=== PATIENT | male | born 1975 | race Caucasian/White ===

== ENCOUNTER 2016-07-30 18:21 | Emergency (ER) | payer SELFPAY ==
[~2016-07-30] VITALS: Ht 170.2 cm; Wt 82.0 kg
[2016-07-30 18:26] VITALS: BP 135/71; PULSE 118; RESP 20; TEMP 99.3; O2SAT 92
[2016-07-30] MEDS ORDERED: LORazepam 2 MG/ML VIAL IV PUSH ONE (18:30)
[2016-07-30] MEDS ORDERED: SODIUM CHLOR 0.9% 1000 ML INJ 1,000 ML IV ONE (18:30)
--- NOTE | 2016-07-30 18:54 | PD ---
HPI Chief Complaint: Alcohol/Drug Intoxication Time Seen by Provider: 18:24 Travel History International Travel<30 days: No Contact w/Intl Traveler<30days: No Traveled to known affect area: No History of Present Illness HPI 41-year-old man, who presents emergency department brought in by EMS after he was found confused and vomiting and the street. He admits to K2 use today. Denies alcohol use. At this point his chief concern is [place]. He is homeless. He is alert and oriented. He does not report happened earlier however he is aware of where he is now, his current situation, and has medical decision making capacity at this moment. He does not desire further medical evaluation. He is agreeable to some fluids and some benzodiazepines. History Past Medical History Medical History: Denies Significant Hx Tetanus Vaccination: > 5 Years Influenza Vaccination: No Past Surgical History Surgical History: No Previous Surgery Social History Alcohol Use: Yes (OCC) Tobacco Use: Yes (1PPD) Allergies-Medications (Allergen,Severity, Reaction): Coded Allergies: No Known Allergies (Unverified , 07/30/16) Reported Meds & Prescriptions Reported Meds & Active Scripts Active No Active Prescriptions or Reported Medications Review of Systems Except as stated in HPI: all other systems reviewed are Neg Physical Exam Narrative GENERAL: 41-year-old man, on edge but no acute distress. SKIN: Warm and dry. HEAD: Atraumatic. Normocephalic. EYES: Pupils equal and round. No scleral icterus. No injection or drainage. ENT: No nasal bleeding or discharge. Mucous membranes pink and moist. NECK: Trachea midline. No JVD. CARDIOVASCULAR: Heart rate rapid. No murmurs. RESPIRATORY: No accessory muscle use. Clear to auscultation. Breath sounds equal bilaterally. GASTROINTESTINAL: Abdomen soft, non-tender, nondistended. Hepatic and splenic margins not palpable. MUSCULOSKELETAL: No obvious deformities. No edema. NEUROLOGICAL: Awake and alert. No obvious cranial nerve deficits. Motor grossly within normal limits. Normal speech. PSYCHIATRIC: Some psychomotor agitation, otherwise unremarkable. Data Data Last Documented VS Vital Signs Date Time Temp Pulse Resp B/P Pulse Ox O2 Delivery O2 Flow Rate FiO2 07/30/16 18:26 99.3 118 20 135/71 92 Orders Iv Access Insert/Monitor (07/30/16 18:24) Sodium Chlor 0.9% 1000 Ml Inj (Ns 1000 M (07/30/16 18:30) Lorazepam Inj (Ativan Inj) (07/30/16 18:30) MDM Medical Decision Making Medical Screen Exam Complete: Yes Emergency Medical Condition: Yes Differential Diagnosis Illicit drug use, intoxication, psychiatric disease, other Narrative Course Medical decision making 41-year-old man, presents to the emergency department with apparent adverse effects of synthetic marijuana use. He was confused on scene with EMS. He's more lucid now but still somewhat agitated. He however appears to have medical decision-making capacity and is not desiring further medical evaluation. He is agreeable to taking some fluids and benzodiazepines while we have case management work with him to try to get him back [place]. Diagnosis Primary Impression: Illicit drug use Additional Instructions: Avoid illicit drug use. Return to the emergency department for any new or worsening symptoms. Scripts No Active Prescriptions or Reported Meds Disposition: 01 DISCHARGE HOME Condition: Stable Ryan Zazueta MD Jul 30, 2016 18:54
== END 2016-07-30 20:51 | disposition home or self-care (01) ==
LOC: NEPE 18:21
DX: F19.90 Other psychoactive substance use, unspecified, uncomplicated (principal); R11.10 Vomiting, unspecified; F17.200 Nicotine dependence, unspecified, uncomplicated; Z59.0 Homelessness
CPT/HCPCS: 96374; 99284; J2060; J7030

== ENCOUNTER 2017-06-21 09:30 | Emergency (ER) | payer SELFPAY ==
[~2017-06-21] VITALS: Ht 172.7 cm; Wt 74.0 kg
[2017-06-21 09:32] VITALS: BP 188/84; PULSE 86; RESP 14; TEMP 98.1; O2SAT 99
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
[2017-06-21] MEDS ORDERED: SODIUM CHLORIDE 0.9% FLUSH 10 ML FLUSH IV FLUSH PRN (10:30)
[2017-06-21] MEDS ORDERED: KETOROLAC TROMETHAMINE 30 MG/ML (IVP) VIAL IVP ONE (10:30)
[2017-06-21 10:46] LABS: BLOOD, URINE TRACE (NEG); COMMENT (UR) CULT NOT INDICATED; CULTURE IF INDICATED CULT NOT INDICATED; GLUCOSE,URINE NEG (NEG); KETONE, URINE NEG (NEG); MUCUS URINE FEW /lpf (OCC); NITRITE,URINE NEG (NEG); PH, URINE 7.5 (5.0-8.5); URINE COLOR LIGHT-YELLOW (YELLW/STRAW)
[2017-06-21 10:49] LABS: AUTOMATED NEUTROPHIL # 7.9 TH/MM3 (1.8-7.7); BASOPHIL # 0.1 TH/MM3 (0-0.2); BASOPHIL % 0.8 % (0.0-2.0); EOSINOPHIL # 0.2 TH/MM3 (0-0.4); EOSINOPHIL % 2.1 % (0.0-4.0); HEMATOCRIT 46.3 % (39.0-51.0); HEMO FLAGS DIFF FINAL; LYMPH % 21.1 % (9.0-44.0); LYMPHOCYTE # 2.5 TH/MM3 (1.0-4.8); MEAN CELL VOLUME 95.3 FL (80.0-100.0); MEAN CORPUSCULAR HEMOGLOBIN 32.3 PG (27.0-34.0); MEAN CORPUSCULAR HGB CONC 33.9 % (32.0-36.0); MONO % 8.5 % (0.0-8.0); NEUT % 67.5 % (16.0-70.0); PLATELET COUNT 312 TH/MM3 (150-450); RED BLOOD COUNT 4.86 MIL/MM3 (4.50-5.90); WHITE BLOOD COUNT 11.7 TH/MM3 (4.0-11.0)
--- NOTE | 2017-06-21 11:04 | RADRPT ---
EXAM DATE/TIME: 06/21/2017 10:45 [facility] COMPARISON: No previous studies available for comparison. INDICATIONS : Chest pain. MEDICAL HISTORY : None. SURGICAL HISTORY : None. ENCOUNTER: Initial ACUITY: 1 day PAIN SCORE: 2/10 LOCATION: Right upper chest FINDINGS: A single view of the chest demonstrates the lungs to be symmetrically aerated without evidence of mas s, infiltrate or effusion. The cardiomediastinal contours are unremarkable. Several right posterior rib fractures of indeterminate age.. CONCLUSION: Right-sided rib fractures of indeterminate likely old. Clear lungs. Juan Quinn MD on June 21, 2017 at 11:02 Board Certified Radiologist. This report was verified electronically.
[2017-06-21 11:11] LABS: ALKALINE PHOSPHATASE 70 U/L (45-117); TOTAL BILIRUBIN ADULT 0.3 MG/DL (0.2-1.0)
[2017-06-21 11:14] LABS: ALT (GPT) 22 U/L (12-78); ANION GAP 3 MEQ/L (5-15); AST (GOT) 21 U/L (15-37); BLOOD UREA NITROGEN 7 MG/DL (7-18); CHLORIDE 108 MEQ/L (98-107); GLOMERULAR FILTRATION RATE 94 ML/MIN (>89); SODIUM (NA) 141 MEQ/L (136-145)
[2017-06-21 11:16] LABS: POTASSIUM 4.2 MEQ/L (3.5-5.1)
[2017-06-21] MEDS ORDERED: TYLE325T PO (13:46)
== END 2017-06-21 18:09 | disposition home or self-care (01) ==
LOC: NEPE 09:30
DX: R10.30 Lower abdominal pain, unspecified (principal); R19.7 Diarrhea, unspecified; R35.0 Frequency of micturition; M54.5 Low back pain; F17.200 Nicotine dependence, unspecified, uncomplicated
CPT/HCPCS: 71010; 80053; 81001; 83690; 85025; 96374; 99284; J1885

== ENCOUNTER 2017-11-14 17:19 | Emergency (ER) | payer SELFPAY ==
[2017-11-14] MEDS: SODIUM CHLOR 0.9% 1000 ML INJ 1,000 ML IV (17:59)
[2017-11-14 18:47] LABS: ALBUMIN 2.9 GM/DL (3.4-5.0); ALT (GPT) 19 U/L (12-78); ANION GAP 12 MEQ/L (5-15); AST (GOT) 27 U/L (15-37); BICARBONATE 24.3 MEQ/L (21.0-32.0); BLOOD UREA NITROGEN 10 MG/DL (7-18); CALCIUM 9.2 MG/DL (8.5-10.1); CHLORIDE 108 MEQ/L (98-107); CREATININE 0.86 MG/DL (0.60-1.30); GLOMERULAR FILTRATION RATE 98 ML/MIN (>89); GLUCOSE,RANDOM 158 MG/DL (74-106); POTASSIUM 3.4 MEQ/L (3.5-5.1); SODIUM (NA) 144 MEQ/L (136-145)
[2017-11-14 18:54] LABS: AMPHETAMINE, URINE POS (NEG); BARBITURATES, URINE NEG (NEG); BENZODIAZEPINE,URINE NEG (NEG); CANNABINOIDS, URINE POS (NEG); COCAINE, URINE NEG (NEG)
[2017-11-14 18:57] LABS: ALCOHOL 11 MG/DL (0-5); ALKALINE PHOSPHATASE 70 U/L (45-117); TOTAL BILIRUBIN ADULT 0.2 MG/DL (0.2-1.0); TOTAL PROTEIN 7.1 GM/DL (6.4-8.2)
[2017-11-14 18:58] LABS: AUTOMATED NEUTROPHIL # 8.8 TH/MM3 (1.8-7.7); BASOPHIL # 0.1 TH/MM3 (0-0.2); BASOPHIL % 1.2 % (0.0-2.0); EOSINOPHIL # 0.2 TH/MM3 (0-0.4); EOSINOPHIL % 1.8 % (0.0-4.0); HEMATOCRIT 42.2 % (39.0-51.0); HEMO FLAGS DIFF FINAL; HEMOGLOBIN 14.4 GM/DL (13.0-17.0); LYMPHOCYTE # 1.6 TH/MM3 (1.0-4.8); MEAN CELL VOLUME 95.1 FL (80.0-100.0); MEAN CORPUSCULAR HEMOGLOBIN 32.4 PG (27.0-34.0); MEAN CORPUSCULAR HGB CONC 34.1 % (32.0-36.0); MEAN PLATELET VOLUME 7.4 FL (7.0-11.0); MONO % 7.2 % (0.0-8.0); MONOCYTE # 0.8 TH/MM3 (0-0.9); NEUT % 75.8 % (16.0-70.0); PLATELET COUNT 461 TH/MM3 (150-450); RED BLOOD COUNT 4.44 MIL/MM3 (4.50-5.90); RED CELL DISTRIBUTION WIDTH 13.2 % (11.6-17.2); WHITE BLOOD COUNT 11.6 TH/MM3 (4.0-11.0)
== END 2017-11-14 21:11 | disposition home or self-care (01) ==
LOC: NEPC 17:19
DX: R56.9 Unspecified convulsions (principal); F19.90 Other psychoactive substance use, unspecified, uncomplicated; F17.200 Nicotine dependence, unspecified, uncomplicated; R00.0 Tachycardia, unspecified
CPT/HCPCS: 70450; 80053; 80307; 84443; 85025; 93005; 96360; 99284-25